=== PATIENT | female | born 1960 | race Caucasian/White ===

== ENCOUNTER 2020-02-07 15:11 | Emergency (ER) | payer OTHER ==
[~2020-02-07 15:11] MED LIST: EPHEDRINE 25 MG/5 ML SYRINGE ONE; Lidocaine 1% PF 5 ML VIAL ONE; PHENYLEPHRINE-NS 100 MCG/ML 10 ML SYRINGE ONE; PROPOFOL 200 MG/20 ML VIAL ONE; Rocuronium Bromide 10 MG/ML (10ML VIAL) ONE
[2020-02-07] MEDS ORDERED: Midazolam HCl 2 mg/2 ml Vial ONE (18:04)
[2020-02-07] MEDS ORDERED: Fentanyl 100 MCG/2 ML VIAL ONE (18:04)
--- NOTE | 2020-02-07 18:14 | HP ---
This is Eliana Waddell NP dictating a report for Vu Gonzalez DO. CHIEF COMPLAINT: Dog bite. HISTORY OF PRESENT ILLNESS: This is a 59-year-old female with only past medical history of migraines. The patient was initially seen at [place] [facility] for a dog bite. The patient reports that her [place] dog that was adopted approximately 4 months ago knocked her down, that hurt the back of her head and her right flank area. The patient denies any loss of consciousness. She had a full recall of the events. The patient states that when she opened the door to walk into her house , he knocked her down. Denies any other previous incidents with the dog. This is a family pet, and vaccines are current. The patient's tetanus is also current. The patient denies any dizziness, chest pain, or shortness of breath. The patient reports no previous illnesses with fever or chills. The patient was transferred to [facility] for definitive care including irrigation, washout, and repair of her deep posterior scalp wound. The patient was given vancomycin 1 g, Zosyn 3.375 g, morphine 4 mg for pain, and Zofran. Part of the patient's laceration was closed with maddy in [place]. The patient has been n.p.o. since early this morning. REVIEW OF SYSTEMS: A 10-point review of systems is negative unless otherwise indicated in the above HPI. PAST MEDICAL HISTORY: Migraines. MEDICATIONS: Amitriptyline 10 mg once a day for migraine prophylaxis. ALLERGIES: 1. TETRACYCLINE. 2. AZITHROMYCIN. PAST SURGICAL HISTORY: Kidney stones removed. SOCIAL HISTORY: The patient is , retired. Denies alcohol use. Denies tobacco use. Denies illicit drug use. PHYSICAL EXAMINATION: VITAL SIGNS: Blood pressure 128/76, pulse 56, respirations 16, SpO2 of 100% on room air, temperature 97.6. GENERAL: Well-appearing middle-aged female, awake and alert, in no distress. HEENT: Normocephalic. Midface is stable. Pupils are equal. Mucous membranes are moist. The patient has a posterior scalp laceration approximately 13 cm, V- shaped deep laceration, posterior occiput. Bleeding is controlled. There are [address] holding the wound closed. NECK: No cervical spine tenderness. Trachea is midline. Normal range of motion. RESPIRATORY: Equal chest rise and fall. Bilateral breath sounds clear. No wheezing, rales, or rhonchi. CARDIOVASCULAR: Regular rate. Regular rhythm. No murmurs. No pedal edema. ABDOMEN: Soft, nontender, and nondistended. The patient does have a right flank linear abrasion. BACK: Normal on inspection. Normal range of motion. EXTREMITIES: Moves all extremities. Distal pulses are intact. The patient has a round abrasion, right lateral thigh. NEUROLOGIC: No focal deficits. GCS 15. SKIN: Warm, pink, and dry. LABORATORY DATA: WBC 8.2, RBC 4.59, hemoglobin 13.5, hematocrit 43.1, platelets 277. PT 11.6, INR 0.9, APTT 23.5. Sodium 140, potassium 4.1, chloride 102, BUN 18, creatinine 0.89, estimated GFR 65, glucose 126, calcium 9.9. DIAGNOSTIC STUDIES: Abdominal and pelvis CT, impression: Right flank laceration with small hematoma of the right external oblique muscle. No intraperitoneal injury. Benign hepatic hemangiomas. IMPRESSION: 1. Status post dog bite. 2. Large deep laceration to the posterior occiput, bleeding controlled. 3. Abrasions to right flank and right lateral leg. PLAN: We will start the patient on maintenance IV fluids, normal saline at 100 an hour. The patient will be taken to the OR for irrigation, debridement, washout , and closure of her large deep posterior scalp wound by Dr. Gonzalez. The patient was examined, and plan was made with Dr. Gonzalez. Plan was also discussed with the patient, who agrees. Job ID: [id number] MTDD
--- NOTE | 2020-02-07 22:23 | OP ---
DATE OF PROCEDURE: 02/07/2020 OPERATION PERFORMED: 1. Excisional debridement of multiple dog bite wounds to the scalp measuring 2 + 6.5 + 2.5 + 2.5 + 8 + 6 + 5 cm, all wounds extending beyond galea. 2. Irrigation and layered repair of the aforementioned wounds. ANESTHESIA: General endotracheal. ESTIMATED BLOOD LOSS: 50 mL. FLUIDS GIVEN: 1200 mL crystalloids. COUNTS: Sponge and instrument counts were verified as correct x2. COMPLICATIONS: None apparent at the time of operation. INDICATIONS FOR OPERATION: A 59-year-old woman suffered multiple dog bite wounds to the scalp in the occipital and posterior neck region. This resulted in multiple complex lacerations and puncture wounds that extend beyond the galea and actively bleeding, for which the patient was brought to the operating room for debridement and closure. Findings are consistent with multiple dog bite lacerations and wounds, which have violated the galea. Bleeding points were controlled with cautery. DESCRIPTION OF PROCEDURE: Informed consent was obtained from the patient. She was brought to the operating room and placed in supine position. Following general anesthesia, the patient was placed in a prone position. The scalp wounds were evaluated, and the area was shaved for better visualization of the hidden multiple lacerations. Active bleeding points were readily controlled using cautery. The aforementioned wounds individually pulse lavaged with large volume sterile saline. Hemostasis was achieved using cautery. Galea was individually approximated using interrupted sutures of 3-0 Monocryl. The wound edges were then closed using maddy. Sterile dressings were applied. Note that the debridement was accomplished using a scalpel and cautery removing nonviable skin edges and subcutaneous tissues. Following closure of the wounds, sterile dressings were applied. The patient tolerated the procedure without any apparent complication and was returned to recovery room in satisfactory condition. Job ID: [id number]
== END 2020-02-07 17:43 | disposition admitted as inpatient to this hospital (09) ==
LOC: ERS 15:11
DX: S01.01XA Laceration without foreign body of scalp, initial encounter (principal); G43.909 Migraine, unspecified, not intractable, without status migrainosus; Z79.899 Other long term (current) drug therapy; W54.0XXA Bitten by dog, initial encounter
CPT/HCPCS: 99284; G0390; J2250; J2704; J3010